=== PATIENT | male | born 1970 | race Caucasian/White ===

== ENCOUNTER 2021-04-10 06:37 | Day surgery (SDC) | payer OTHER ==
[2021-04-10] MEDS ORDERED: Lactated Ringers 1,000 ML IV ONE (06:56)
[2021-04-10] MEDS ORDERED: Lactated Ringers 1,000 ML IV SCH (07:00)
[2021-04-10] MEDS ORDERED: Versed 2 MG/2 ML Injection ONE (07:58)
[2021-04-10] MEDS ORDERED: DIPRIVAN 200 MG/20 ML IV ONE ×4 (07:58→08:19)
[2021-04-10 09:51] VITALS: BP 134/72; PULSE 82; O2SAT 97
--- NOTE | 2021-04-10 10:42 | OP ---
SURGERY DATE/TIME: 04/10/2021 0800 PREOPERATIVE DIAGNOSIS: Screening exam. POSTOPERATIVE DIAGNOSIS: Normal colon. PROCEDURE: Colonoscopy. SURGEON: Dr. Contreras. ANESTHESIA: MAC. Medications given by anesthesia department. HISTORY: The patient is a 50 year-old white male patient presenting now for his first screening colonoscopy. He was appraised of the risks of the procedure including the risk of perforation, phlebitis, untoward reaction to medication, bleeding and missed lesions. The patient verbalized his understanding and desired to have the procedure performed. DESCRIPTION OF PROCEDURE: The patient was given the medications by the anesthesia department. He had continuous pulse oximetry, ECG monitoring, intermittent blood pressure monitoring and tidal CO2 monitoring during the examination. He was placed in the left lateral decubitus position. A digital rectal examination was performed and revealed normal anal sphincter tone, no masses and a normal prostate. The flexible Olympus pediatric colonoscope was used to intubate the rectum. A view of the colon was developed sequentially to the cecum. Upon insertion and withdrawal, including a retroflex view in the rectum, no mucosal lesions were encountered. The scope was removed from the patient who tolerated the procedure well and was sent back to OP recovery in good condition. The prep was noted to be good.
== END 2021-04-10 09:35 | disposition home or self-care (01) ==
LOC: SDC 06:37
PROVIDERS: ATTEND Family Medicine
DX: Z12.11 Encounter for screening for malignant neoplasm of colon (principal); E11.9 Type 2 diabetes mellitus without complications; I10 Essential (primary) hypertension; Z79.899 Other long term (current) drug therapy
CPT/HCPCS: 82947; J2250; J2704

== ENCOUNTER 2024-04-26 21:48 | Emergency (ER) | payer BC ==
[2024-04-26 22:29] VITALS: RESP 16; TEMP 97.9
[2024-04-26] MEDS ORDERED: Adacel Vial IM ONE (23:03)
[2024-04-26] MEDS ORDERED: KEFLEX 500 MG ONE (23:03)
[2024-04-26] MEDS: KEFLEX 500 MG PO ONE (23:05)
[2024-04-26] MEDS: Adacel Vial IM ONE (23:05)
--- NOTE | 2024-04-26 23:05 | ERPHSYRPT ---
- History of Present Illness Time Seen by Provider: 04/26/24 21:51 Source: patient Exam Limitations: no limitations Patient Subjective Stated Complaint: foriegn object lodged in right pointer finger Triage Nursing Assessment: patient was mowing the grass and hit a gas line flag and it flew and pierced his right pointer finger Physician History: 54-year-old with history of diabetes mellitus, hypertension, remote history of pulmonary embolism not on any anticoagulation right-handed dominant presented in the ER after he was mowing and a gas pipeline flag got underneath, and a piece flew and got stuck into his right index finger earlier this evening. Patient reports numbness in the finger distal to insertion. No bony pain. Intact movements at distal interphalangeal joint and proximal interphalangeal joint. Unsure about tetanus status. Patient has intact range of motion of the proximal and distal interphalangeal joint. Seems like piece of metal/wire is superficially stuck in, mobile. I have discussed with patient about obtaining x-rays to see if it has caused any damage to the bone but he does not want. He does understand that we would miss diagnosis of fracture finger. Does not have any tenderness where wire is embedded on the dorsal side. I have slowly moved and came out on the finger without any local anesthesia. It is thoroughly clean/wash. Tetanus is updated and started on Keflex. Recommended taking Tylenol patient follow-up. Discussed signs symptoms of worsening needing return to ER which he seems understanding. Allergies/Adverse Reactions: No Known Drug Allergies Allergy (Verified 04/10/21 06:56) Home Medications: Aspirin [Aspirin EC] 81 mg PO DAILY 05/13/17 [History] Fexofenadine HCl [Destinee] 180 mg PO DAILY 05/13/17 [History] Multivitamin [Multivitamins] 1 each PO DAILY 05/13/17 [History] Fluticasone Propionate [Flonase NASAL] 16 gm NS DAILY 04/03/21 [History] Metformin HCl 500 mg [Glucophage 500 MG] 500 mg PO BID 04/03/21 [History] lisinopriL [Lisinopril] 5 mg PO DAILY 04/03/21 [History] Hx Tetanus, Diphtheria Vaccination/Date Given: (unknown) Hx Influenza Vaccination/Date Given: No Hx Pneumococcal Vaccination/Date Given: No Travel Risk - International Travel Have you traveled outside of the country in past 3 weeks: No - Emerging Infectious Disease Are you exhibiting symptoms associated with any current EIDs: No - Review of Systems Constitutional: No Symptoms Respiratory: No Symptoms Cardiac: No Symptoms Musculoskeletal: Injury Skin: Skin Lesions Neurological: No Symptoms - Past Medical History Pertinent Past Medical History: Yes Neurological History: No Pertinent History ENT History: No Pertinent History Cardiac History: High Cholesterol, Hypertension Respiratory History: Pulmonary Embolism Endocrine Medical History: Diabetes Type II Musculoskeletal History: No Pertinent History GI Medical History: No Pertinent History History: No Pertinent History Psycho-Social History: No Pertinent History Male Reproductive Disorders: No Pertinent History Other Medical History: hx of mrsa in rt knee last year and right arm pit - Past Surgical History Past Surgical History: Yes Neuro Surgical History: No Pertinent History Cardiac: No Pertinent History Respiratory: No Pertinent History Gastrointestinal: Hernia Repair Genitourinary: No Pertinent History Musculoskeletal: Orthopedic Surgery Male Surgical History: Vasectomy Other Surgical History: Right rotator cuff repair - Social History Smoking Status: Former smoker Exposure to second hand smoke: No Drug Use: none Patient Lives Alone: No - Nursing Vital Signs Nursing Vital Signs: Initial Vital Signs Temperature 97.9 F 04/26/24 22:21 Pulse Rate 86 04/26/24 22:21 Respiratory Rate 16 04/26/24 22:21 Blood Pressure 140/101 04/26/24 22:21 O2 Sat by Pulse Oximetry 96 04/26/24 22:21 Pain Scale Pain Intensity 0 - Physical Exam General Appearance: no apparent distress Eye Exam: PERRL/EOMI Neck Exam: normal inspection, full range of motion Respiratory Exam: normal breath sounds, lungs clear Cardiovascular Exam: regular rate/rhythm, normal heart sounds Extremity Exam: other (Embedded foreign body right index finger dorsal aspect on the medial side mobile,) Neurologic Exam: alert, oriented x 3, cooperative Skin Exam: normal color SpO2 Interpretation: normal SpO2: 96 O2 Delivery: Room Air Procedures - Additional Procedures Progress: Foreign body removal right index finger.[id number]. Under aseptic major foreign bodies removed without anesthesia. Superficially embedded in the skin. Dressing applied Ordered Tests: Active Orders 24 hr Category Date Time Status HAND (MINIMUM 3 VIEWS) Stat Exams 04/26/24 22:36 Ordered Medication Summary Discontinued Medications Generic Name Dose Route Start Last Admin Trade Name Freq PRN Reason Stop Dose Admin Cephalexin HCl 500 mg 04/26/24 22:50 04/26/24 23:05 Cephalexin Mh500 Mg Capsule PO 04/26/24 22:51 500 mg STAT ONE Administration Cephalexin HCl Confirm 04/26/24 23:03 Cephalexin Mh500 Mg Capsule Administered 04/26/24 23:04 Dose 500 mg .ROUTE .STK-MED ONE Diphtheria/Tetanus/Acell Pertussis 0.5 ml 04/26/24 22:50 04/26/24 23:05 Tdap --Diph,Pertuss(Acell),Tet Vac/Pf 0.5 Ml Vial IM 04/26/24 22:51 0.5 ml .ONCE ONE Administration Diphtheria/Tetanus/Acell Pertussis Confirm 04/26/24 23:03 Tdap --Diph,Pertuss(Acell),Tet Vac/Pf 0.5 Ml Vial Administered 04/26/24 23:04 Dose 0.5 ml IM .STK-MED ONE - Progress Progress: improved Progress Note: 04/26/24 23:02 54-year-old with history of diabetes mellitus, hypertension, remote history of pulmonary embolism not on any anticoagulation right-handed dominant presented in the ER after he was mowing and a gas pipeline flag got underneath, and a piece flew and got stuck into his right index finger earlier this evening. Patient reports numbness in the finger distal to insertion. No bony pain. Intact movements at distal interphalangeal joint and proximal interphalangeal joint. Unsure about tetanus status. Patient has intact range of motion of the proximal and distal interphalangeal joint. Seems like piece of metal/wire is superficially stuck in, mobile. I have discussed with patient about obtaining x-rays to see if it has caused any damage to the bone but he does not want. He does understand that we would miss diagnosis of fracture finger. Does not have any tenderness where wire is embedded on the dorsal side. I have slowly moved and came out on the finger without any local anesthesia. It is thoroughly clean/wash. Tetanus is updated and started on Keflex. Recommended taking Tylenol patient follow-up. Discussed signs symptoms of worsening needing return to ER which he seems understanding. Counseled pt/family regarding: diagnosis, need for follow-up Medical Desision Making - Risk of complications The pt has a mod risk of morbidity or mortality based on: Need for prescription drug management - Departure Departure Disposition: Home Clinical Impression: Foreign body of finger of right hand Condition: Stable Critical Care Time: No Referrals: NIKI MCKEON MD [Primary Care Provider] - Follow up with PCP 1 day Instructions: Removal of Foreign Body in Skin Additional Instructions: Tylenol/ibuprofen as needed. Keep it clean and dry. Follow-up with primary care for reevaluation. Return to ER for increasing pain swelling redness discharge or difficulty movements of the finger. Prescriptions: Cephalexin Mh 500 mg [Keflex 500 mg] 500 mg PO TID #21 cap
[2024-04-26] MEDS ORDERED: BACIGUENT PACKET ONE (23:13)
[2024-04-26] MEDS: BACIGUENT PACKET TP ONE (23:14)
[2024-04-26 23:17] VITALS: BP 130/86; PULSE 71; O2SAT 95
== END 2024-04-26 23:15 | disposition home or self-care (01) ==
LOC: ED 21:48
DX: S60.450A Superficial foreign body of right index finger, initial encounter (principal); W20.8XXA Other cause of strike by thrown, projected or falling object, initial encounter; Y93.H2 Activity, gardening and landscaping; Y92.007 Garden or yard of unspecified non-institutional (private) residence as the place of occurrence of the external cause; E78.5 Hyperlipidemia, unspecified; I10 Essential (primary) hypertension; E11.9 Type 2 diabetes mellitus without complications; Z79.84 Long term (current) use of oral hypoglycemic drugs; Z79.899 Other long term (current) drug therapy; Z23 Encounter for immunization
CPT/HCPCS: 90471; 90715; 99283; A9270-GY

== ENCOUNTER 2024-12-20 17:18 | Emergency (ER) | payer BC, OTHER ==
[2024-12-20 17:45] VITALS: RESP 20; TEMP 98.7; O2SAT 97
--- NOTE | 2024-12-20 18:04 | ERPHSYRPT ---
- History of Present Illness Time Seen by Provider: 12/20/24 17:35 Historian: patient Exam Limitations: no limitations Patient Subjective Stated Complaint: pt states he began to have stomach pain last night Triage Nursing Assessment: pt ambulated into the er; pt is axo x4; c/o abd pain; pt states 5/10 pain to abd; pt denies V/D, c/o nausea; abd distended, non tender; last bm today; skin PDW; no respiratory distress present; tachycardic Physician History: 54-year-old male with history of diabetes mellitus, recently added metformin to Farxiga presented in the ER with complains of upper abdominal discomfort dull aching off and on since yesterday and worsening this afternoon, moderate intensity with associated nausea without vomiting. Denies any constipation or diarrhea. No fever or chills reported. Allergies/Adverse Reactions: No Known Drug Allergies Allergy (Verified 12/20/24 17:30) Home Medications: Aspirin [Aspirin EC] 81 mg PO DAILY 05/13/17 [History] Fexofenadine HCl [Destinee] 180 mg PO DAILY 05/13/17 [History] Fluticasone Propionate [Flonase NASAL] 16 gm NS DAILY 04/03/21 [History] Metformin HCl 500 mg [Glucophage 500 MG] 500 mg PO DAILY 04/03/21 [History] lisinopriL [Lisinopril] 5 mg PO DAILY 04/03/21 [History] Dapagliflozin Propanediol [Farxiga] 10 mg PO DAILY 12/20/24 [History] Pravastatin Sodium 10 mg PO DAILY 12/20/24 [History] Hx Tetanus, Diphtheria Vaccination/Date Given: Yes (2023) Hx Influenza Vaccination/Date Given: No Hx Pneumococcal Vaccination/Date Given: No Travel Risk - International Travel Have you traveled outside of the country in past 3 weeks: No - Emerging Infectious Disease Are you exhibiting symptoms associated with any current EIDs: Yes Symptoms: Abdominal Pain - Review of Systems Constitutional: No Symptoms Ears, Nose, & Throat: No Symptoms Respiratory: No Symptoms Cardiac: No Symptoms Abdominal/Gastrointestinal: Abdominal Pain, Nausea Genitourinary Symptoms: No Symptoms Musculoskeletal: No Symptoms Neurological: No Symptoms Psychological: No Symptoms Hematologic/Lymphatic: No Symptoms - Past Medical History Pertinent Past Medical History: Yes Neurological History: No Pertinent History ENT History: No Pertinent History Cardiac History: High Cholesterol, Hypertension Respiratory History: Pulmonary Embolism Endocrine Medical History: Diabetes Type II Musculoskeletal History: No Pertinent History GI Medical History: No Pertinent History History: No Pertinent History Psycho-Social History: No Pertinent History Male Reproductive Disorders: No Pertinent History Other Medical History: hx of mrsa in rt knee last year and right arm pit - Past Surgical History Past Surgical History: Yes Neuro Surgical History: No Pertinent History Cardiac: No Pertinent History Respiratory: No Pertinent History Gastrointestinal: Hernia Repair Genitourinary: No Pertinent History Musculoskeletal: Orthopedic Surgery Male Surgical History: Vasectomy Other Surgical History: Right rotator cuff repair - Social History Smoking Status: Former smoker Exposure to second hand smoke: No Drug Use: none Patient Lives Alone: No - Social Determinants of Health Will the patient participate in the screening: Yes Do you worry about a steady place to live?: No Do you have any problems with any of the following?: No known problems In the past 12 months,have you had to go without utilities?: No Transportation Issues: No Has anyone in your support network made you feel unsafe?: No Have you or anyone in your house had to go without enough: No - Nursing Vital Signs Nursing Vital Signs: Initial Vital Signs Temperature 98.7 F 12/20/24 17:37 Pulse Rate 103 H 12/20/24 17:37 Respiratory Rate 20 12/20/24 17:37 Blood Pressure 124/92 12/20/24 17:37 O2 Sat by Pulse Oximetry 97 12/20/24 17:37 Pain Scale Pain Intensity 5 - Physical Exam General Appearance: no apparent distress, alert Eye Exam: PERRL/EOMI Ears, Nose, Throat Exam: normal ENT inspection Neck Exam: normal inspection, non-tender, supple, full range of motion Respiratory Exam: normal breath sounds, lungs clear Cardiovascular Exam: regular rate/rhythm, normal heart sounds Gastrointestinal/Abdomen Exam: soft, normal bowel sounds, tenderness (Mild tenderness diffusely upper abdomen), other (Negative Lemons sign), No guarding Back Exam: normal inspection, normal range of motion Extremity Exam: normal inspection Neurologic Exam: alert, oriented x 3, cooperative Skin Exam: normal color SpO2 Interpretation: normal SpO2: 97 O2 Delivery: Room Air Ordered Tests: Active Orders 24 hr Category Date Time Status IV Insertion STAT Care 12/20/24 18:01 Active ABDOMEN AND PELVIS W/0 CONTRAS [CT] Stat Exams 12/20/24 18:02 Taken CBC W DIFF Stat Lab 12/20/24 18:35 Completed CMP Stat Lab 12/20/24 18:35 Completed CULTURE,URINE Stat Lab 12/20/24 18:12 Received LIPASE Stat Lab 12/20/24 18:35 Completed UA W/RFX UR CULTURE Stat Lab 12/20/24 18:12 Completed Medication Summary Discontinued Medications Generic Name Dose Route Start Last Admin Trade Name Jesus PRN Reason Stop Dose Admin Pantoprazole Sodium 40 mg 12/20/24 18:01 12/20/24 18:13 Pantoprazole 40 Mg Vial IV 12/20/24 18:02 40 mg STAT ONE Administration Pantoprazole Sodium Confirm 12/20/24 18:13 Pantoprazole 40 Mg Vial Administered 12/20/24 18:14 Dose 40 mg IV .WITOI-Hudl ONE Lab/Rad Data: Laboratory Result Diagrams 12/20/24 18:35 12/20/24 18:35 Laboratory Results 12/20/24 12/20/24 12/20/24 Range/Units 18:35 18:35 18:35 WBC 9.2 H (4.23-9.07) x10^3/uL RBC 5.05 (4.63-6.08) x10^6/uL Hgb 14.9 (13.7-17.5) g/dL Hct 43.3 (40.1-51.0) % MCV 85.7 (79.0-92.2) fL MCH 29.5 (25.7-32.2) pg MCHC 34.4 (32.3-36.5) g/dL RDW 13.1 (11.6-14.4) % Plt Count 216 (163-337) x10^3/uL MPV 9.6 (9.4-12.4) fL Gran % 74.5 H (34.0-67.9) % Immature Gran % (Auto) 0.4 (0.001-0.429) % Nucleat RBC Rel Count 0.0 (0.00-0.2) % Eos # (Auto) 0.07 (0.04-0.54) x10^3/uL Immature Gran # (Auto) 0.04 H (0.001-0.031) x10^3u/L Absolute Lymphs (auto) 1.40 (1.32-3.57) x10^3/uL Absolute Monos (auto) 0.81 (0.30-0.82) x10^3/uL Absolute Nucleated RBC 0.00 (0.00-0.012) x10^3u/L Lymphocytes % 15.2 L (21.8-53.1) % Monocytes % 8.8 (5.3-12.2) % Eosinophils % 0.8 (0.8-7.0) % Basophils % 0.3 (0.2-1.2) % Absolute Granulocytes 6.88 H (1.78-5.38) x10^3/uL Basophils # 0.03 (0.01-0.08) x10^3/uL Sodium 136 (135-145) mmol/L Potassium 3.6 (3.5-5.1) mmol/L Chloride 103 (98-107) mmol/L Carbon Dioxide 24 (22-30) mmol/L Anion Gap 11.9 (5-15) MEQ/L BUN 22 H (9-20) mg/dL Creatinine 0.98 (0.66-1.25) mg/dL Estimated GFR 91.6 ML/MIN Glucose 133 H (74-106) mg/dL Calcium 9.0 (8.4-10.2) mg/dL Total Bilirubin 0.70 (0.2-1.3) mg/dL AST 33 (17-59) U/L ALT 27 (0-50) U/L Alkaline Phosphatase 73 (38-126) U/L Serum Total Protein 7.4 (6.3-8.2) g/dL Albumin 4.5 (3.5-5.0) g/dL Lipase 131 (23-300) U/L Urine Color (Yellow) Urine Appearance (Clear) Urine pH (4.6-8.0) Ur Specific [place] (1.005-1.030) Urine Protein (Negative) Urine Glucose (UA) (Negative) mg/dL Urine Ketones (Negative) Urine Blood (Negative) Urine Nitrite (Negative) Urine Bilirubin (Negative) Urine Urobilinogen (0.2) mg/dL Ur Leukocyte Esterase (Negative) U Hyaline Cast (Auto) (0-2) /LPF Urine Microscopic RBC (0-5) /HPF Urine Microscopic WBC (0-5) /HPF Ur Epithelial Cells (None Seen) /HPF Urine Bacteria (None Seen) /HPF Urine Culture Reflexed (NO) Influenza Type A Ag NEGATIVE (NEGATIVE) Influenza Type B Ag NEGATIVE (NEGATIVE) RSV (PCR) NEGATIVE (NEGATIVE) SARS-CoV-2 (PCR) NEGATIVE (NEGATIVE) 12/20/24 Range/Units 18:12 WBC (4.23-9.07) x10^3/uL RBC (4.63-6.08) x10^6/uL Hgb (13.7-17.5) g/dL Hct (40.1-51.0) % MCV (79.0-92.2) fL MCH (25.7-32.2) pg MCHC (32.3-36.5) g/dL RDW (11.6-14.4) % Plt Count (163-337) x10^3/uL MPV (9.4-12.4) fL Gran % (34.0-67.9) % Immature Gran % (Auto) (0.001-0.429) % Nucleat RBC Rel Count (0.00-0.2) % Eos # (Auto) (0.04-0.54) x10^3/uL Immature Gran # (Auto) (0.001-0.031) x10^3u/L Absolute Lymphs (auto) (1.32-3.57) x10^3/uL Absolute Monos (auto) (0.30-0.82) x10^3/uL Absolute Nucleated RBC (0.00-0.012) x10^3u/L Lymphocytes % (21.8-53.1) % Monocytes % (5.3-12.2) % Eosinophils % (0.8-7.0) % Basophils % (0.2-1.2) % Absolute Granulocytes (1.78-5.38) x10^3/uL Basophils # (0.01-0.08) x10^3/uL Sodium (135-145) mmol/L Potassium (3.5-5.1) mmol/L Chloride (98-107) mmol/L Carbon Dioxide (22-30) mmol/L Anion Gap (5-15) MEQ/L BUN (9-20) mg/dL Creatinine (0.66-1.25) mg/dL Estimated GFR ML/MIN Glucose (74-106) mg/dL Calcium (8.4-10.2) mg/dL Total Bilirubin (0.2-1.3) mg/dL AST (17-59) U/L ALT (0-50) U/L Alkaline Phosphatase (38-126) U/L Serum Total Protein (6.3-8.2) g/dL Albumin (3.5-5.0) g/dL Lipase (23-300) U/L Urine Color Yellow (Yellow) Urine Appearance Clear (Clear) Urine pH 5.5 (4.6-8.0) Ur Specific [place] >=1.030 A (1.005-1.030) Urine Protein 30 (Negative) Urine Glucose (UA) >=1000 A (Negative) mg/dL Urine Ketones Trace A (Negative) Urine Blood Small A (Negative) Urine Nitrite Negative (Negative) Urine Bilirubin Negative (Negative) Urine Urobilinogen 0.2 (0.2) mg/dL Ur Leukocyte Esterase Negative (Negative) U Hyaline Cast (Auto) NONE SEEN (0-2) /LPF Urine Microscopic RBC 0-2 (0-5) /HPF Urine Microscopic WBC 0-2 (0-5) /HPF Ur Epithelial Cells None Seen (None Seen) /HPF Urine Bacteria None Seen (None Seen) /HPF Urine Culture Reflexed YES (NO) Influenza Type A Ag (NEGATIVE) Influenza Type B Ag (NEGATIVE) RSV (PCR) (NEGATIVE) SARS-CoV-2 (PCR) (NEGATIVE) - Progress Progress: improved Progress Note: 12/20/24 20:36 54-year-old is evaluated in the ER for upper abdominal pain with nausea without vomiting. Patient has diffuse upper abdominal tenderness, no guarding or rebound. He is offered pain medication which he declined, given IV Protonix. Workup showed normal white count, fairly unremarkable chemistries and no UTI. 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 Official final report is pending. Patient has no peritoneal signs on repeated evaluation. COVID flu RSV are negative. I believe patient's symptoms are possibly viral etiology versus Dyspepsia and I will give a prescription of Protonix, recommended supportive care and outpa tient follow-up. Discussed signs symptoms of worsening needing return to ER which he seems understanding. Stable for discharge. Counseled pt/family regarding: lab results, diagnosis, need for follow-up, rad results Medical Desision Making - Diagnostic Testing Diagnostic test were ordered, analyzed, and reviewed by me: Yes Radiological Interpretation: Reviewed by me, Teleradiologist Report - Risk of complications The pt has a mod risk of morbidity or mortality based on: Need for prescription drug management - Departure Departure Disposition: Home Clinical Impression: Upper abdominal pain Condition: Stable Critical Care Time: No Referrals: NIKI MCKEON MD [ACTIVE STAFF] - Follow up with PCP 1 day Instructions: Severe Abdominal Pain, Adult (DC) Additional Instructions: Take Tylenol as needed. Follow-up with primary care for reevaluation. Return to ER for worsening abdominal pain, nausea vomiting or if develop fever chills etc. Prescriptions: PANTOPRAZOLE 40 mg Tablet [Protonix 40MG Tablet] 40 mg PO QAM #30 tab
[2024-12-20] MEDS ORDERED: PROTONIX 40 MG IV IV ONE (18:13)
[2024-12-20] MEDS: PROTONIX 40 MG IV IV ONE (18:13)
[2024-12-20 18:51] LABS: Absolute Neutrophil Ct (ANC) 6.88 x10^3/uL (1.78-5.38); BASOPHIL % 0.3 % (0.2-1.2); Basophil (Absolute #) 0.03 x10^3/uL (0.01-0.08); Eosinophil % 0.8 % (0.8-7.0); Eosinophil (Absolute #) 0.07 x10^3/uL (0.04-0.54); Hematocrit 43.3 % (40.1-51.0); Hemoglobin 14.9 g/dL (13.7-17.5); IMMATURE GRAN # 0.04 x10^3u/L (0.001-0.031); IMMATURE GRAN % 0.4 % (0.001-0.429); Lymphocytes % 15.2 % (21.8-53.1); Mean Cell Volume 85.7 fL (79.0-92.2); Mean Corpuscular Hemoglobin 29.5 pg (25.7-32.2); Mean Corpuscular Hgb Concent. 34.4 g/dL (32.3-36.5); Mean Platelet Volume 9.6 fL (9.4-12.4); Monocyte (Absolute #) 0.81 x10^3/uL (0.30-0.82); Monocytes % 8.8 % (5.3-12.2); Neutrophil % 74.5 % (34.0-67.9); Platelet Count 216 x10^3/uL (163-337); Red Blood Count 5.05 x10^6/uL (4.63-6.08); Red Cell Distribution Width 13.1 % (11.6-14.4); White Blood Count 9.2 x10^3/uL (4.23-9.07)
[2024-12-20 18:56] LABS: ALBUMIN 4.5 g/dL (3.5-5.0); ANION GAP 11.9 MEQ/L (5-15); BILIRUBIN,TOTAL 0.7 mg/dL (0.2-1.3); Creatinine 1 0.98 mg/dL (0.66-1.25); EST GLOMERULAR FILTRATION RATE 91.6 ML/MIN; Potassium 3.6 mmol/L (3.5-5.1); Total Protein 7.4 g/dL (6.3-8.2)
[2024-12-20 19:19] LABS: INFLUENZA A NEGATIVE (NEGATIVE); INFLUENZA B NEGATIVE (NEGATIVE); RESPIRATORY SYNCTIAL VIRUS NEGATIVE (NEGATIVE); SARS-CoV-2 Xpert Express NEGATIVE (NEGATIVE)
[2024-12-20 19:22] LABS: Appearance Clear (Clear); Bacteria None Seen /HPF (None Seen); Bilirubin Negative (Negative); Blood Small (Negative); Epithelial Cells None Seen /HPF (None Seen); Glucose, Urine >=1000 mg/dL (Negative); Hyaline Casts NONE SEEN /LPF (0-2); Ketones Trace (Negative); Leukocyte Esterase Negative (Negative); Nitrite Negative (Negative); Ph 5.5 (4.6-8.0); Protein,Urine Dip 30 (Negative); RBC 0-2 /HPF (0-5); Specific Gravity >=1.030 (1.005-1.030); Urobilinogen 0.2 mg/dL (0.2); WBC 0-2 /HPF (0-5)
[2024-12-20 20:44] VITALS: BP 128/76; PULSE 86
--- NOTE | 2024-12-21 09:15 | XRAY ---
Indication: Abdomen pain. Multiple contiguous axial images obtained through the abdomen and pelvis without contrast. Comparison: None Lung bases demonstrate mild dependent atelectasis. No infiltrate or effusion. Heart not enlarged. Noncontrasted stomach and bowel loops appear nonobstructed with normal appendix. Incidental horseshoe kidney. Left kidney demonstrates nonobstructing punctate calculus. No free fluid/air. Remaining liver, gallbladder, pancreas, spleen, adrenal glands, kidneys, ureters, and bladder are unremarkable for noncontrast exam. Minimal aortic calcifications without AAA. Osseous structures intact with minimal/mild degenerative changes throughout spine and minimal lumbar levoscoliosis centered at L3. Incidental L4 vertebral hemangioma. Impression: 1. 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 2. Remaining CT abdomen/pelvis without contrast exam is negative.
== END 2024-12-20 20:56 | disposition home or self-care (01) ==
LOC: ED 17:18
DX: R10.10 Upper abdominal pain, unspecified (principal); R11.0 Nausea; E78.5 Hyperlipidemia, unspecified; I10 Essential (primary) hypertension; E11.9 Type 2 diabetes mellitus without complications; Z79.84 Long term (current) use of oral hypoglycemic drugs; Z79.899 Other long term (current) drug therapy
CPT/HCPCS: 0241U; 36415; 74176; 80053; 81001; 83690; 85025; 87086; 96374; 99285; 99284

== ENCOUNTER 2025-06-28 15:00 | Emergency (ER) | payer OTHER ==
[2025-06-28 15:25] VITALS: RESP 16; TEMP 97.4
--- NOTE | 2025-06-28 16:06 | ERPHSYRPT ---
- History of Present Illness Time Seen by Provider: 06/28/25 15:00 Source: patient Patient Subjective Stated Complaint: PT STATED THAT AROUND 1410 TODAY HE GOT HIS LEFT MIDDLE FINGER CAUGHT IN THE MACHINE AT WORK WITH IT REMOVING PART OF HIS FINGER AND THE FINGERNAIL Triage Nursing Assessment: PT IS ALERT/ORIENTED, BLEEDING CONTROLLED TO LEFT MIDDLE FINGER, Physician History: This is a 55-year-old [id number] male who got his finger crushed at work by heavy metal object degloving the tip of his left middle finger. Event happened just prior to arrival. Patient's last tetanus shot was 1 year ago. Alcohol or drug use or abuse Allergies/Adverse Reactions: No Known Drug Allergies Allergy (Verified 12/20/24 17:30) Home Medications: Aspirin [Aspirin EC] 81 mg PO DAILY 05/13/17 [History] Fexofenadine HCl [Destinee] 180 mg PO DAILY 05/13/17 [History] Fluticasone Propionate [Flonase NASAL] 16 gm NS DAILY 04/03/21 [History] Metformin HCl 500 mg [Glucophage 500 MG] 500 mg PO DAILY 04/03/21 [History] lisinopriL [Lisinopril] 5 mg PO DAILY 04/03/21 [History] Dapagliflozin Propanediol [Farxiga] 10 mg PO DAILY 12/20/24 [History] Pravastatin Sodium 10 mg PO DAILY 12/20/24 [History] Hx Tetanus, Diphtheria Vaccination/Date Given: Yes (2023) Hx Influenza Vaccination/Date Given: No Hx Pneumococcal Vaccination/Date Given: No Travel Risk - International Travel Have you traveled outside of the country in past 3 weeks: No - Emerging Infectious Disease Are you exhibiting symptoms associated with any current EIDs: No Symptoms: Abdominal Pain - Review of Systems All Other Systems: Reviewed and Negative (See HPI) - Past Medical History Pertinent Past Medical History: Yes Neurological History: No Pertinent History ENT History: No Pertinent History Cardiac History: High Cholesterol, Hypertension Respiratory History: Pulmonary Embolism Endocrine Medical History: Diabetes Type II Musculoskeletal History: No Pertinent History GI Medical History: No Pertinent History History: No Pertinent History Psycho-Social History: No Pertinent History Male Reproductive Disorders: No Pertinent History Other Medical History: hx of mrsa in rt knee last year and right arm pit - Past Surgical History Past Surgical History: Yes - Social History Smoking Status: Former smoker Exposure to second hand smoke: No Drug Use: none - Social Determinants of Health Will the patient participate in the screening: Declined to provide - Nursing Vital Signs Nursing Vital Signs: Initial Vital Signs Temperature 97.4 F 06/28/25 15:14 Pulse Rate 57 L 06/28/25 15:14 Respiratory Rate 16 06/28/25 15:14 Blood Pressure 180/105 06/28/25 15:14 O2 Sat by Pulse Oximetry 98 06/28/25 15:14 Pain Scale Pain Intensity 3 - Physical Exam SpO2: 98 Comments: 06/28/25 16:11 General: Well-nourished well-developed. No apparent distress. HEENT: Normocephalic atraumatic no obvious facial or neck deformity or injury. CV: RRR NL Perfusion. No edema Resp: No Respiratory distress or adventitious breath sounds Abd: ND SNT MSK: Left middle finger distal phalanx distal to the PIP with complete amputation of the fingertip removing the nail. Bleeding controlled. Neuro: Alert and [place] x4. No focal neurologic changes Psych: No SI, HI or grave disability Ordered Tests: Medication Summary Discontinued Medications Generic Name Dose Route Start Last Admin Trade Name Freq PRN Reason Stop Dose Admin Hydrocodone Bitart/Acetaminophen 2 tab 06/28/25 16:08 06/28/25 16:30 Hydrocodone/Apap 5/325 1 Tab Tablet PO 06/28/25 16:09 2 tab STAT ONE Administration Hydrocodone Bitart/Acetaminophen Confirm 06/28/25 16:25 Hydrocodone/Apap 5/325 1 Tab Tablet Administered 06/28/25 16:26 Dose 1 tab .ROUTE .STK-MED ONE Hydrocodone Bitart/Acetaminophen Confirm 06/28/25 16:34 Hydrocodone/Apap 5/325 1 Tab Tablet Administered 06/28/25 16:35 Dose 1 tab .ROUTE .STK-MED ONE Amoxicillin/Clavulanate Potassium 875 mg 06/28/25 16:09 06/28/25 16:29 Amox Tr/Potassium Clavulanate 875 Mg Tablet PO 06/28/25 16:10 875 mg STAT ONE Administration Amoxicillin/Clavulanate Potassium Confirm 06/28/25 16:25 Amox Tr/Potassium Clavulanate 875 Mg Tablet Administered 06/28/25 16:26 Dose 875 mg .ROUTE .STK-MED ONE Ibuprofen 600 mg 06/28/25 16:08 06/28/25 16:29 Ibuprofen 600 Mg Tablet PO 06/28/25 16:09 600 mg STAT ONE Administration Ibuprofen Confirm 06/28/25 16:25 Ibuprofen 600 Mg Tablet Administered 06/28/25 16:26 Dose 600 mg .ROUTE .STK-MED ONE Lidocaine HCl 5 mg 06/28/25 16:06 06/28/25 17:06 Lidocaine Hcl/Pf 50 Mg/5 Ml Vial IJ 06/28/25 16:07 Not Given ONCE STA Lidocaine HCl Confirm 06/28/25 16:25 Lidocaine Hcl 1% 20 Ml Mdv 20 Ml Ml Administered 06/28/25 16:26 Dose 5 ml .ROUTE .STK-MED ONE Lidocaine HCl 5 ml 06/28/25 16:38 06/28/25 16:45 Lidocaine Hcl 1% 20 Ml Mdv 20 Ml Ml IJ 06/28/25 16:39 5 ml STAT ONE Administration - Progress Progress Note: 06/28/25 18:03 Patient had his up-to-date tetanus. He was given Augmentin orally as well as oral pain control. He consents for a cleaning of the wound. A ring block is performed using 1% lidocaine 5 cc. A chlorhexidine scrub brushes uses from alternating ring finger on the fingertip. Patient tolerated well. Patient with sensation of the fingertip bilateral pre and post. No heavy bleeding. I Surgicel was placed over the wound medially with a dry bulky dressing gauze. Coban covering gauze. 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 Mathew Kaur's office for follow-up on Tuesday, Tuesday or Tuesday. Additional Instructions: You have been evaluated for an emergency medical condition. At this time, given the current history and events presented, the examination conducted and any possible testing you may have had, you have been given a presumptive diagnosis based on the current information is obtained. Your discharge diagnosis is presumptive and not necessarily definitive. Medical conditions present in various stages very often without all the symptoms or findings described in medical literature. Other symptoms, concerns or conditions may arise and your diagnoses may evolve or change and/or your condition could potentially worsen after the time of disposition or discharge. You have been given a presumptive diagnosis and your condition appears to be stable, but your medical issues can change or worsen. If there is worsening of your condition including difficulty breathing, swallowing, speaking, chest pain or pressure, intractable vomiting, worsening or changing mental status, numbness, tingling or weakness of your body or arms or legs, thoughts or plans of harming yourself or others, or any other concerns, call 911 and/or return immediately to the closest emergency department. It is important you follow-up with your doctor on the next business day. Call your doctor, or the referral provided if you do not have a doctor, when they open to schedule a follow-up appointment in the next 1 or latest 2 days. Please refer to the attached sheet. If you do not have primary care doctor, you can call the [facility] referral line at [phone]. Return immediately if your symptoms worsen or if you are unable to obtain further care. My team and I thank you for choosing the [facility] Emergency Department emergency healthcare needs. We wish you a speedy recovery. Very respectfully, Dr. Chuckie Edge M.D. [place] [employer] Board-certified Emergency Physician Prescriptions: Amox Tr/Potass Clav. 875 mg [Augmentin 875-125 Tablet] 1 each PO BID 10 Days #20 tablet Hydrocodone/Acetaminophen [Hydrocodon-Acetaminophen 5-325] 1 each PO Q4-6HPRN PRN #16 tablet MDD 8 PRN Reason: Pain
[2025-06-28 16:13] VITALS: PULSE 98
[2025-06-28] MEDS ORDERED: Augmentin 875-125 Tablet ONE (16:25)
[2025-06-28] MEDS ORDERED: MOTRIN 600 MG ONE (16:25)
[2025-06-28] MEDS ORDERED: XYLOCAINE 1% HCL 20 ML MDV ONE (16:25)
[2025-06-28] MEDS ORDERED: NORCO 5/325 MG ONE ×2 (16:25→16:34)
[2025-06-28] MEDS: Augmentin 875-125 Tablet PO ONE (16:29)
[2025-06-28] MEDS: MOTRIN 600 MG PO ONE (16:29)
[2025-06-28] MEDS: NORCO 5/325 MG PO ONE (16:30)
[2025-06-28] MEDS: XYLOCAINE 1% HCL 20 ML MDV IJ ONE (16:45)
[2025-06-28] MEDS: LIDOCAINE HCL 1% 50 MG/5 ML VL IJ STA (17:06)
[2025-06-28 18:09] VITALS: O2SAT 98
[2025-06-28 18:28] VITALS: BP 109/85
== END 2025-06-28 18:48 | disposition home or self-care (01) ==
LOC: ED 15:00
DX: S68.613A Complete traumatic transphalangeal amputation of left middle finger, initial encounter (principal); W31.89XA Contact with other specified machinery, initial encounter; Y99.0 Civilian activity done for income or pay; I10 Essential (primary) hypertension; E11.9 Type 2 diabetes mellitus without complications; Z79.891 Long term (current) use of opiate analgesic; Z79.84 Long term (current) use of oral hypoglycemic drugs; Z79.899 Other long term (current) drug therapy